=== PATIENT | female | born 1980 | race Hispanic/Latino ===

== ENCOUNTER 2019-10-29 17:20 | Emergency (ER) | payer SELFPAY ==
--- NOTE | 2019-10-29 18:57 | Event Note ---
ED Screening Note Date of service: 10/29/19 Time: 18:50 ED Screening Note: 39 yo f presents cc of dysuria and urgency denies lesions, f.n.v This initial assessment/diagnostic orders/clinical plan/treatment(s) is/are subject to change based on patients health status, clinical progression and re- assessment by fellow clinical providers in the ED. Further treatment and workup at subsequent clinical providers discretion. Patient/guardian urged not to elope from the ED as their condition may be serious if not clinically assessed and managed. Initial orders include: ua,upt
[2019-10-29 19:15] LABS: Color,Urine Yellow (Yellow)
[2019-10-29 19:16] LABS: Bacteria,Urine 1+ /HPF (Negative); Bilirubin,Urine NEG (Negative); Blood,Urine NEG (Negative); Mucus,Urine 3+ /HPF; Urobilinogen,Urine < 2.0 mg/dL (<2.0)
[2019-10-29 19:17] LABS: WBC,Urine > 182.0 /HPF (0.0-6.0)
--- NOTE | 2019-10-29 19:50 | Emergency Department Report ---
ED Female HPI - General Chief complaint: Urogenital-Female Stated complaint: POSS UTI Time Seen by Provider: 10/29/19 19:42 Source: patient Mode of arrival: Ambulatory Limitations: No Limitations - History of Present Illness Initial comments: CC: "I have a UTI." HPI: Sean is a very pleasant 39 yo female with previous history of partial hysterectomy who presents with UTI symptoms. She has dysuria and frequent urination. Dark urine. Symptoms present for the last 2 days. 2 with [id number] AZO. Denies fever, back pain, vomiting. Positive urgency to urinate. MD Complaint: dysuria -: Gradual, days(s) (2) Location: suprapubic Radiation: non-radiating Severity: mild Severity scale (0 -10): 4 Quality: burning Consistency: intermittent Worsens with: urination Are you Now?: No Associated Symptoms: denies other symptoms - Related Data Sexually active: Yes Previous Rx's Medication Instructions Recorded Last Taken Type Phenazopyridine [Pyridium] 200 mg PO BID 3 Days #6 tab 10/29/19 Unknown Rx cephALEXin [Keflex] 500 mg PO QID 5 Days #20 capsule 10/29/19 Unknown Rx Allergies Allergy/AdvReac Type Severity Reaction Status Date / Time metronidazole [From Flagyl] Allergy Hives Verified 10/29/19 17:43 ED Review of Systems ROS: Stated complaint: POSS UTI Other details as noted in HPI Constitutional: denies: fever, malaise Gastrointestinal: denies: abdominal pain, nausea, vomiting Genitourinary: urgency, dysuria Musculoskeletal: denies: back pain ED Past Medical Hx - Past Medical History Previous Medical History?: No - Surgical History Past Surgical History?: Yes Hx Cholecystectomy: Yes Additional Surgical History: Partial hysterectomy, Left Ulna nerve surgery - Social History Smoking Status: Former Smoker Substance Use Type: Alcohol - Medications Home Medications: Home Medications Medication Instructions Recorded Confirmed Last Taken Type Phenazopyridine [Pyridium] 200 mg PO BID 3 Days #6 tab 10/29/19 Unknown Rx cephALEXin [Keflex] 500 mg PO QID 5 Days #20 capsule 10/29/19 Unknown Rx ED Physical Exam - General Limitations: No Limitations General appearance: alert, in no apparent distress - Head Head exam: Present: atraumatic, normocephalic - Eye Eye exam: Present: normal appearance. Absent: scleral icterus, conjunctival injection - ENT ENT exam: Present: normal exam - Neck Neck exam: Present: normal inspection, full ROM - Respiratory Respiratory exam: Absent: respiratory distress - GI/Abdominal GI/Abdominal exam: Present: soft. Absent: distended, tenderness, guarding, rebound - Extremities Exam Extremities exam: Present: normal inspection - Neurological Exam Neurological exam: Present: alert, oriented X3 - Psychiatric Psychiatric exam: Present: normal affect, normal mood - Skin Skin exam: Present: warm, dry, intact, normal color ED Course Vital Signs 10/29/19 17:43 Temperature 98.2 F Pulse Rate 59 L Respiratory 18 Rate Blood Pressure 115/73 O2 Sat by Pulse 95 Oximetry ED Medical Decision Making - Lab Data Laboratory Results - last 24 hr 10/29/19 18:45 Urine Color Yellow Urine Turbidity Cloudy Urine pH 6.0 Ur Specific [place] 1.021 Urine Protein 30 mg/dl Urine Glucose (UA) Neg Urine Ketones Neg Urine Blood Neg Urine Nitrite Neg Urine Bilirubin Neg Urine Urobilinogen < 2.0 Ur Leukocyte Esterase Lg Urine WBC (Auto) > 182.0 H Urine RBC (Auto) 13.0 U Epithel Cells (Auto) 10.0 Urine Bacteria (Auto) 1+ Urine Mucus 3+ - Medical Decision Making Ms. Stovall presents with UTI symptoms. Urinary tract infection confirmed by urinalysis. Pyuria is present. Prescribed cephalexin and Pyridium. Critical care attestation.: If time is entered above; I have spent that time in minutes in the direct care of this critically ill patient, excluding procedure time. ED Disposition Clinical Impression: Urinary tract infection Disposition: DC- TO HOME OR SELFCARE Is pt being admited?: No Does the pt Need Aspirin: No Condition: Stable Instructions: Urinary Tract Infection in Women (ED) Prescriptions: cephALEXin [Keflex] 500 mg PO QID 5 Days #20 capsule Phenazopyridine [Pyridium] 200 mg PO BID 3 Days #6 tab Referrals: LUIS FREEMAN MD [Staff Physician] - as needed
[2019-10-29] MEDS ORDERED: PHENAZOPYRIDINE 200 MG TAB PO STA (19:52)
[2019-10-29] MEDS ORDERED: cephALEXin 500 MG CAP PO STA (19:52)
[2019-10-29] MEDS ORDERED: FLUCONAZOLE 200 MG TAB PO STA (19:55)
[2019-10-29 20:40] VITALS: BP 118/70
== END 2019-10-29 20:30 | disposition home or self-care (01) ==
LOC: ED 17:20
DX: N39.0 Urinary tract infection, site not specified (principal); Z87.891 Personal history of nicotine dependence; Z90.710 Acquired absence of both cervix and uterus; Z90.49 Acquired absence of other specified parts of digestive tract; Z88.1 Allergy status to other antibiotic agents; Z79.899 Other long term (current) drug therapy
CPT/HCPCS: 81001

== ENCOUNTER 2020-06-07 03:13 | Emergency (ER) | payer MEDICAID ==
[2020-06-07] MEDS ORDERED: BENZONATATE 100 MG CAP PO ONE (07:22)
--- NOTE | 2020-06-07 07:58 | XRay Report ---
CHEST 2 VIEWS INDICATION / CLINICAL INFORMATION: Cough and body aches. COMPARISON: None available. FINDINGS: SUPPORT DEVICES: None. HEART / MEDIASTINUM: The heart size and pulmonary vasculature are normal. LUNGS / PLEURA: No significant pulmonary or pleural abnormality. No pneumothorax. ADDITIONAL FINDINGS: No significant additional findings. IMPRESSION: No acute findings. Signer Name: Curtis Hoffman MD Signed: 06/07/2020 7:54 AM Workstation Name: [id number]
--- NOTE | 2020-06-07 08:05 | Emergency Department Report ---
Upper Respiratory HPI - HPI Chief Complaint: Upper Respiratory Infection Stated Complaint: BODYACHES/CHEST PAIN/COUGH Time Seen by Provider: 06/07/20 07:21 Duration: 3 Days URI Symptoms: Rhinorrhea: Yes, Sore Throat: No, Ear Pain: No, Cough: Yes, Shortness of Breath: Yes, Sick Contacts: No, Unable to Take Fluids: No, Urine Output Abnormal: No, Listless Behavior: No Other History: This is a 39-year-old female nontoxic, well nourished in appearance, no acute signs of distress presents to the ED with c/o of productive cough, fever, chills, body aches, rhinorrhea, nasal congestion x3 days. Stated has some mild SOB. Patient describes productive cough as yellow mucus production. Patient denies any sick contacts. Stated when coughing has back pains but otherwises denies any back pains. Patient denies any recent travels, long car, recent hospital stays. Patient denies any calf pain or calf tenderness. Patient denies any short of breath, fever, chills, nausea, vomiting, hemoptysis, numbness, tingling, headache or stiff neck. - Home Meds and Allergies Home Medications: Previous Rx's Medication Instructions Recorded Last Taken Type Phenazopyridine [Pyridium] 200 mg PO BID 3 Days #6 tab 10/29/19 Unknown Rx cephALEXin [Keflex] 500 mg PO QID 5 Days #20 capsule 10/29/19 Unknown Rx Benzonatate [Tessalon Perles] 100 mg PO Q8HR PRN #20 capsule 06/07/20 Unknown Rx Fluconazole (Nf) [Diflucan TAB] 150 mg PO ONCE #1 tablet 06/07/20 Unknown Rx cephALEXin [Keflex] 500 mg PO Q8HR #21 cap 06/07/20 Unknown Rx Allergies/Adverse Reactions: Allergies Allergy/AdvReac Type Severity Reaction Status Date / Time metronidazole [From Flagyl] Allergy Hives Verified 10/29/19 17:43 ED Review of Systems ROS: Stated complaint: BODYACHES/CHEST PAIN/COUGH Other details as noted in HPI Constitutional: denies: chills, fever Eyes: denies: eye pain, eye discharge, vision change ENT: congestion. denies: ear pain, throat pain Respiratory: cough, shortness of breath. denies: wheezing Cardiovascular: denies: chest pain, palpitations Endocrine: no symptoms reported Gastrointestinal: denies: abdominal pain, nausea, diarrhea Genitourinary: denies: urgency, dysuria, discharge Musculoskeletal: denies: back pain, joint swelling, arthralgia Skin: denies: rash, lesions Neurological: denies: headache, weakness, paresthesias Psychiatric: denies: anxiety, depression Hematological/Lymphatic: denies: easy bleeding, easy bruising ED Past Medical Hx - Past Medical History Previous Medical History?: Yes Hx Asthma: Yes - Surgical History Past Surgical History?: Yes Hx Cholecystectomy: Yes Additional Surgical History: Partial hysterectomy, Left Ulna nerve surgery - Social History Smoking Status: Current Every Day Smoker Substance Use Type: Marijuana - Medications Home Medications: Home Medications Medication Instructions Recorded Confirmed Last Taken Type Phenazopyridine [Pyridium] 200 mg PO BID 3 Days #6 tab 10/29/19 Unknown Rx cephALEXin [Keflex] 500 mg PO QID 5 Days #20 capsule 10/29/19 Unknown Rx Benzonatate [Tessalon Perles] 100 mg PO Q8HR PRN #20 capsule 06/07/20 Unknown Rx Fluconazole (Nf) [Diflucan TAB] 150 mg PO ONCE #1 tablet 06/07/20 Unknown Rx cephALEXin [Keflex] 500 mg PO Q8HR #21 cap 06/07/20 Unknown Rx ED Bronchiolitis Physical Exam - Exam General: Vital signs noted. No distress. Alert and acting appropriately. HEENT: No Pharyngeal Erythema, No Conjuctival Injection, No Dry Mucous Membranes, No Rhinorrhea Ear: Neither TM Bulge, Neither TM Erythema, Neither EAC Discharge Neck: No Adenopathy, No Rigidity Lungs: Yes Clear Lung Sounds, Yes Good Air Exchange, Yes Cough, No Wheezes, No Stridor, No Nasal Flaring, No Retractions, No Use of Accessory Muscles Heart: Yes Regular, No Murmur Abdomen: Yes Normal Bowel Sounds, No Tenderness, No Peritoneal Signs Skin: No Rash, No Eczema Neurologic: Alert and oriented, no deficits. Musculoskeletal: Unremarkable. ED Physical Exam - General Limitations: No Limitations ED Course Vital Signs 06/07/20 03:28 Temperature 98.5 F Pulse Rate 69 Respiratory 18 Rate Blood Pressure 107/72 O2 Sat by Pulse 95 Oximetry - Reevaluation(s) Reevaluation #1: 06/07/20 08:02 Patient is speaking in full sentences with no signs of distress noted. ED Medical Decision Making - Lab Data Lab Results 06/07/20 Range/Units Unknown Urine Color Yellow (Yellow) Urine Turbidity Slightly-cloudy (Clear) Urine pH 6.0 (5.0-7.0) Ur Specific [place] 1.006 (1.003-1.030) Urine Protein <15 mg/dl (Negative) mg/dL Urine Glucose (UA) Neg (Negative) mg/dL Urine Ketones Neg (Negative) mg/dL Urine Blood Neg (Negative) Urine Nitrite Neg (Negative) Urine Bilirubin Neg (Negative) Urine Urobilinogen < 2.0 (<2.0) mg/dL Ur Leukocyte Esterase Mod (Negative) Urine WBC (Auto) 13.0 H (0.0-6.0) /HPF Urine RBC (Auto) 6.0 (0.0-6.0) /HPF U Epithel Cells (Auto) 7.0 (0-13.0) /HPF Urine Bacteria (Auto) 4+ (Negative) /HPF Urine HCG, Qual Negative (Negative) - EKG Data 06/07/20 08:27 Normal sinus rhythm at [address] or T wave abnormalities. Reviewed and signed by Dr. Berrios. - Radiology Data Referring Physician: CONSTANTIN WILSON Patient Name: MAKI BLAIR Date of : 1980 Sex: Female Report Date: 2020-06-07 Report Status: [place] [id number] XRay Report Signed Patient: MAKI BLAIR MR#: [id number] : 1980 Acct:[id number] Age/Sex: 39 / F ADM Date: 06/07/20 Loc: ED Attending Dr: Ordering Physician: CONSTANTIN WILSON MD Date of Service: 06/07/20 Procedure(s): XR chest routine 2V Accession Number(s): [id number] cc: CONSTANTIN WILSON MD Fluoro Time In Minutes: CHEST 2 VIEWS INDICATION / CLINICAL INFORMATION: Cough and body aches. COMPARISON: None available. FINDINGS: SUPPORT DEVICES: None. HEART / MEDIASTINUM: The heart size and pulmonary vasculature are normal. LUNGS / PLEURA: No significant pulmonary or pleural abnormality. No pneumothorax. ADDITIONAL FINDINGS: No significant additional findings. IMPRESSION: No acute findings. Signer Name: Curtis Hoffman MD Signed: 06/07/2020 7:54 AM Workstation Name: [id number] Transcribed By: RT Dictated By: Curtis Hoffman MD Electronically Authenticated By: Curtis Hoffman MD Signed Date/Time: 06/07/20753 DD/ 3 TD/TT: - Medical Decision Making This is a 39-year-old female that presents with suspected covid. Patient is stable and was examined by me. Chest x-ray has been obtained and dictated by radiologist with normal exam. Patient is notified of x-ray results with no questions noted. Patient was instructed and educated on COVID and self quarantine and seek medical attention if symptoms worsen. Patient was instructed to increase hydration, rest and take Tylneol for fever episodes. Patient received tesslone perrls in the ED. Vitals stable. Patient is nonfebrile and normal heart rate. Patient was instructed Follow-up with a primary care doctor in 3-5 days or if symptoms worsen and continue return to emergency room as soon as possible. At time time of discharge, the patient does not seem toxic or ill in appearance. No acute signs of distress noted. Patient agrees to discharge treatment plan of care. No further questions noted by the patient.nt. Critical care attestation.: If time is entered above; I have spent that time in minutes in the direct care of this critically ill patient, excluding procedure time. ED Disposition Clinical Impression: Suspected COVID-19 virus infection UTI (urinary tract infection) Qualifiers: Urinary tract infection type: acute cystitis Hematuria presence: without hematuria Qualified Code(s): N30.00 - Acute cystitis without hematuria Disposition: DC-01 TO HOME OR SELFCARE Is pt being admited?: No Does the pt Need Aspirin: No Condition: Stable Instructions: COVID-19 Additional Instructions: Follow-up with a primary care doctor in 3-5 days or if symptoms worsen and continue return to emergency room as soon as possible. As educated and instructed to you must self quarantine yourself and people that you have been in close contact with similar symptoms for the next 14 days. Please see your nearest health department or primary care doctor that you are referred to for COVID testing. Increased rest, hydration, and take Tylenol as prescribed for fever episode. Prescriptions: Fluconazole (Nf) [Diflucan TAB] 150 mg PO ONCE #1 tablet cephALEXin [Keflex] 500 mg PO Q8HR #21 cap Benzonatate [Tessalon Perles] 100 mg PO Q8HR PRN #20 capsule PRN Reason: Cough Referrals: PRIMARY MD JIN [Primary Care Provider] - 3-5 Days LUIS FREEMAN MD [Staff Physician] - 3-5 Days [facility] [Provider Group] - 3-5 Days Forms: Work/School Release Form(ED)
[2020-06-07 08:18] LABS: Bacteria,Urine 4+ /HPF (Negative); Bilirubin,Urine NEG (Negative); Blood,Urine NEG (Negative); Color,Urine Yellow (Yellow); Protein,Urine <15 mg/dL mg/dL (Negative); Urobilinogen,Urine < 2.0 mg/dL (<2.0)
[2020-06-07 08:24] LABS: HCG Qualitative,Urine Negative (Negative)
[2020-06-07 09:04] VITALS: BP 138/83
== END 2020-06-07 08:30 | disposition home or self-care (01) ==
LOC: ED 03:13
DX: N39.0 Urinary tract infection, site not specified (principal); J45.909 Unspecified asthma, uncomplicated; F17.200 Nicotine dependence, unspecified, uncomplicated; F12.10 Cannabis abuse, uncomplicated; Z90.710 Acquired absence of both cervix and uterus; Z90.49 Acquired absence of other specified parts of digestive tract; Z98.890 Other specified postprocedural states; Z79.899 Other long term (current) drug therapy; Z88.8 Allergy status to other drugs, medicaments and biological substances; Z20.828 Contact with and (suspected) exposure to other viral communicable diseases
CPT/HCPCS: 71046; 81001; 81025; 87076; 87086; 87186; 93005